=== PATIENT | male | born 1965 | race Caucasian/White ===

== ENCOUNTER 2021-02-20 17:26 | Inpatient (IN) | payer SELFPAY ==
[~2021-02-20] VITALS: Ht 170.2 cm; Wt 72.5 kg
[2021-02-20] MEDS ORDERED: MVI, ADULT NO.4 WITH VIT K 10 ML, FOLIC ACID INJ 1 MG, THIAMINE INJ 100 MG in IV RINGER... IV ONE (18:45)
[2021-02-20] MEDS ORDERED: busPIRone 5 MG TABLET. PO ONE (18:45)
[2021-02-20] MEDS ORDERED: LORazepam 1 MG TABLET PO ONE (18:45)
[2021-02-20 18:59] LABS: BASO % 1 % (0-3); EOS % 0 % (0-3); HEMATOCRIT 44.2 % (39.0-53.0); LYMPH # 1.3 x10^3/uL (1.0-4.8); LYMPH % 24 % (24-48); MEAN CORPUSCULAR HEMOGLOBIN 32 pg (25-35); MEAN CORPUSCULAR HGB CONC 34 g/dL (31-37); MEAN CORPUSCULAR VOLUME 93 fL (79-100); MONO # 0.4 x10^3/uL (0.0-1.1); MONO % 8 % (0-9); NEUT # 3.9 x10^3uL (1.8-7.7); NEUT % 68 % (31-73); PLATELET COUNT 234 x10^3/uL (140-400); RED BLOOD COUNT 4.77 x10^6/uL (4.30-5.70); RED CELL DISTRIBUTION WIDTH 15.5 % (11.5-14.5); WHITE BLOOD COUNT 5.7 x10^3/uL (4.0-11.0)
[2021-02-20 19:05] LABS: CALCIUM 8.2 mg/dL (8.5-10.1); GFR 77.6; POTASSIUM 3.8 mmol/L (3.5-5.1)
[2021-02-20 19:10] LABS: ALBUMIN/GLOBULIN RATIO 0.9 (1.0-1.7); TOTAL BILIRUBIN 0.4 mg/dL (0.2-1.0); TOTAL PROTEIN 8.5 g/dL (6.4-8.2)
[2021-02-20] MEDS ORDERED: IV NORMAL SALINE 1,000ML 1,000 ML IV ONE (19:30)
--- NOTE | 2021-02-20 19:44 | PHYS DOC ---
Past History Past Medical History: Alcoholism, Anxiety (MICHELET MCCLELLAN) Past Surgical History: No Surgical History (MICHELET MCCLELLAN) Alcohol Use: Heavy Drug Use: None (MICHELET MCCLELLAN) General Adult EDM: Chief Complaint: ALCOHOL INTOXICATION HPI: HPI: Patient is a 55 year old male who presents with alcohol intoxication. Patient's family friend is at bedside and assist in providing history. Patient reports that he typically drinks a half bottle of [place] and 6-7 beers per day. Today he reports he has taken in slightly less than that. He reports his anxiety is "out the roof." When asked what he is worried about or why he feels anxious he states, "I can answer that question." Patient's family friend at bedside states that the patient has been an alcoholic for several years, however his drinking got worse in the past 3 months since he had to handle the selling of his family home and auction of its contents. Patient now lives with his father in a mobile home. Patient's father called the family friend today asking him to take the patient to the ER to seek further rehabilitative treatment. Patient admits to having a drinking problem for the past 5 to 6 years and agrees that is gotten worse over the past 3 months. He reports that he wants to be admitted to a rehab facility. Patient reports medical compliance with lisinopril, Lexapro and BuSpar. Patient has not taken any of his medications today. Patient has no oth er complaints. (MICHELET MCCLELLAN) Review of Systems: Review of Systems: ROS negative except as mentioned in HPI. (MICHELET MCCLELLAN) Current Medications: Current Meds: Current Medications Medications (Trade) Dose Ordered Sig/[facility] Start Time Stop Time Status Last Admin Dose Admin Buspirone HCl (Buspar) 5 mg 1X ONCE 02/20/21 18:45 02/20/21 18:49 DC 02/20/21 18:45 5 MG Lorazepam (Ativan Inj) 2 mg PRN Q1HR PRN 02/20/21 19:30 Lorazepam (Ativan) 0.5 mg 1X ONCE 02/20/21 18:45 02/20/21 18:49 DC 02/20/21 18:45 0.5 MG Multivitamins/ Minerals 10 ml/ Folic Acid 1 mg/ Thiamine HCl 100 mg/Lactated Ringer's 1,011.3 ml @ 1,011.3 mls/hr 1X ONCE 02/20/21 18:45 02/20/21 19:44 02/20/21 18:45 1,011.3 MLS/HR Ondansetron HCl (Zofran) 4 mg PRN Q4HRS PRN 02/20/21 19:30 02/21/21 19:29 Sodium Chloride 1,000 ml @ 75 mls/hr 1X ONCE 02/20/21 19:30 02/21/21 08:49 (MICHELET MCCLELLAN) Allergies: Allergies: Allergies Coded Allergies Type Severity Reaction Last Updated Verified Penicillins Allergy Unknown 02/20/21 Yes (MICHELET MCCLELLAN) Physical Exam: PE: Constitutional: Well developed, well nourished, disheveled and tearful. HENT: Normocephalic, atraumatic, bilateral external ears normal, oropharynx moist, no oral exudates, nose normal. Eyes: PERRLA, EOMI, conjunctiva normal, no discharge. Neck: Normal range of motion, no tenderness, supple, no stridor. Cardiovascular: Heart rate regular rhythm, no murmur. Lungs & Thorax: Bilateral breath sounds clear to auscultation. Abdomen: Protuberant, bowel sounds normal, soft, no tenderness, no masses, no pulsatile masses. Skin: Warm, dry, no erythema, no rash. Some facial flushing appreciated. Back: No tenderness, no CVA tenderness. Extremities: No tenderness, no cyanosis, no clubbing, ROM intact, no edema. Neurologic: Alert and oriented x3, no focal deficits noted. Psychologic: Affect intoxicated, fair judgment, mood "my anxiety is out the roof." (MICHELET MCCLELLAN) Current Patient Data: Labs: Laboratory Tests Test 02/20/21 18:38 02/20/21 18:55 White Blood Count 5.7 x10^3/uL (4.0-11.0) Red Blood Count 4.77 x10^6/uL (4.30-5.70) Hemoglobin 15.0 g/dL (13.0-17.5) Hematocrit 44.2 % (39.0-53.0) Mean Corpuscular Volume 93 fL (79-100) Mean Corpuscular Hemoglobin 32 pg (25-35) Mean Corpuscular Hemoglobin Concent 34 g/dL (31-37) Red Cell Distribution Width 15.5 % (11.5-14.5) H Platelet Count 234 x10^3/uL (140-400) Neutrophils (%) (Auto) 68 % (31-73) Lymphocytes (%) (Auto) 24 % (24-48) Monocytes (%) (Auto) 8 % (0-9) Eosinophils (%) (Auto) 0 % (0-3) Basophils (%) (Auto) 1 % (0-3) Neutrophils # (Auto) 3.9 x10^3uL (1.8-7.7) Lymphocytes # (Auto) 1.3 x10^3/uL (1.0-4.8) Monocytes # (Auto) 0.4 x10^3/uL (0.0-1.1) Eosinophils # (Auto) 0.0 x10^3/uL (0.0-0.7) Basophils # (Auto) 0.0 x10^3/uL (0.0-0.2) Sodium Level 129 mmol/L (136-145) L Potassium Level 3.8 mmol/L (3.5-5.1) Chloride Level 92 mmol/L (98-107) L Carbon Dioxide Level 23 mmol/L (21-32) Anion Gap 14 (6-14) Blood Urea Nitrogen 6 mg/dL (8-26) L Creatinine 1.0 mg/dL (0.7-1.3) Estimated GFR (Cockcroft-Gault) 77.6 BUN/Creatinine Ratio 6 (6-20) Glucose Level 104 mg/dL (70-99) H Calcium Level 8.2 mg/dL (8.5-10.1) L Total Bilirubin 0.4 mg/dL (0.2-1.0) Aspartate Amino Transferase (AST) 69 U/L (15-37) H Alanine Aminotransferase (ALT) 45 U/L (16-63) Alkaline Phosphatase 100 U/L (46-116) Total Protein 8.5 g/dL (6.4-8.2) H Albumin 4.0 g/dL (3.4-5.0) Albumin/Globulin Ratio 0.9 (1.0-1.7) L Lipase 155 U/L (73-393) Ethyl Alcohol Level 392 mg/dL (0-10) H SARS-CoV-2 Antigen (Rapid) Negative (NEGATIVE) Vital Signs: Vital Signs Date Time Temp Pulse Resp B/P (MAP) Pulse Ox O2 Delivery O2 Flow Rate FiO2 02/20/21 17:45 98.5 116 16 134/104 (114) 96 Room Air (MICHELET MCCLELLAN) Heart Score: C/O Chest Pain: No (MICHELET MCCLELLAN) Course & Med Decision Making: Course & Med Decision Making Pertinent Labs and Imaging studies reviewed. (See chart for details) Patient will be admitted to hospitalist service for detoxification and monitoring. Will be evaluated for inpatient rehabilitation when he is sober. (MICHELET MCCLELLAN) Dragon Disclaimer: Dragon Disclaimer: This electronic medical record was generated, in whole or in part, using a voice recognition dictation system. (MICHELET MCCLELLAN) Departure Departure: Impression: Primary Impression: Acute alcohol intoxication Qualified Codes: F10.920 - Alcohol use, unspecified with intoxication, uncomplicated Disposition: ADMITTED INPATIENT Admitting Physician: Erik Barraza (MICHELET MCCLELLAN) Condition: GUARDED Referrals: PCP,JULEE (PCP) Attending Signature Attending Signature I have reviewed the PA/PRESS TOOL MAKER's note and plan of care. I was available for consultation as needed during the patient's visit in the emergency department. I agree with the clinical impression, plan, and disposition. (LOBO CHASE DO) MICHELET MCCLELLAN Feb 20, 2021 19:44 LOBO CHASE DO Feb 20, 2021 22:14
[2021-02-20 20:28] LABS: BARBITURATES NEG (NEG); BENZODIAZEPINES NEG (NEG); CANNABINOIDS NEG (NEG); COCAINE NEG (NEG); METHADONE NEG (NEG); OPIATES NEG (NEG); PHENCYCLIDINE NEG (NEG)
[2021-02-20 20:30] LABS: AMPHETAMINE/METHAMPHETAMINE NEG (NEG)
[2021-02-20 20:41] LABS: BACTERIA,URINE FEW /HPF (0-FEW); BILIRUBIN,URINE NEG (NEG); CLARITY,URINE CLEAR; COLOR,URINE YELLOW; GLUCOSE,URINE NEG (NEG); NITRITE,URINE NEG (NEG); SQUAMOUS EPITHELIAL CELL,UR FEW /LPF; UROBILINOGEN,URINE 0.2 mg/dL (0.2 mg/dL)
[2021-02-20] MEDS: NICOTINE 21MG PATCH. TD PRN (21:06)
[2021-02-20] MEDS: ONDANSETRON PF 4 MG/2 ML VIAL. IVP PRN (21:32)
[2021-02-20 22:09] VITALS: BP 146/93
[2021-02-20 23:00] VITALS: BP 109/72
[2021-02-21] MEDS: ONDANSETRON PF 4 MG/2 ML VIAL. IVP PRN ×3 (07:51→18:02)
--- NOTE | 2021-02-21 09:23 | HP ---
DATE OF SERVICE: 02/21/2021 ADMIT DATE: 02/20/2021 ATTENDING PHYSICIAN: Erik Barraza MD CHIEF COMPLAINT: Alcohol withdrawal. HISTORY OF PRESENT ILLNESS: The patient is a 55-year-old gentleman who drinks to excess. He drinks [place] and several beers afterwards. Blood alcohol level was 398 yesterday. He is very despondent. He called, family brought him in. He is wanting treatment for impending delirium tremens. When I saw him, he was very agitated, shaking. He has not had DTs or seizures in the past, but he has impending delirium tremens at this time. PAST MEDICAL HISTORY: Significant for depression and chronic alcoholism. He drinks regularly. He has not had a DUI. He states that he has not had seizures before. CURRENT MEDICATIONS: None. SOCIAL HISTORY: Alcohol use as noted. Blood alcohol level was slightly under 400 mg/dL. FAMILY HISTORY: He lives with his dad in a trailer home. They lost their home. He is unemployed. REVIEW OF SYSTEMS: All other systems reviewed and turned out to be negative. PHYSICAL EXAMINATION: GENERAL: When I saw him, this is a tremulous gentleman. VITAL SIGNS: Initial vital signs showed a blood pressure 109/72, pulse is 99, regular. He was afebrile, oxygen saturation 93% on room air. HEENT: Head is without trauma. Pupils are reactive. Sclerae nonicteric. The oropharynx is clear. NECK: Supple, no bruits. LUNGS: Shallow respirations. CARDIOVASCULAR: Showed regular heart tones. No gallops. ABDOMEN: Soft. EXTREMITIES: Without edema. NEUROLOGIC: Very tremulous and agitated. SKIN: Warm and dry. PERTINENT LABORATORY STUDIES: Hemoglobin is 15.0 g/dL, white count was 5700. Electrolytes showed a sodium of 129 mEq, potassium was 3.8 mEq, creatinine 1.0 mg/dL. Nonfasting blood sugar 104, total bilirubin 0.4. Transaminases, slight elevation of AST. Lipase is normal. Serology negative for coronavirus. ASSESSMENT: 1. A 55-year-old gentleman with chronic alcoholism. 2. Alcohol withdrawal with impending delirium tremens. 3. Underlying depression and anxiety. PLAN: 1. Admit to the inpatient unit. 2. CIWA protocol. 3. Diet as tolerated. ANNAMARIE/MANDO DR: ANNAMARIE/elodia TID: [id number]
[2021-02-21] MEDS ORDERED: LISI10TA16 PO (10:13)
[2021-02-21] MEDS ORDERED: BUSP15TA PO (10:13)
[2021-02-21] MEDS ORDERED: HYDR25TA PO (10:13)
[2021-02-21] MEDS ORDERED: OMEP40CA7 PO (10:13)
[2021-02-21] MEDS ORDERED: GABA-587 PO (10:13)
[2021-02-21] MEDS ORDERED: TRAZ150T49 PO (10:14)
[2021-02-21] MEDS: MVI, ADULT NO.4 WITH VIT K 10 ML, THIAMINE INJ 100 MG, FOLIC ACID INJ 1 MG in IV NORMAL... IV SCH (10:41)
[2021-02-21 11:00] VITALS: BP 179/97
[2021-02-21] MEDS: busPIRone 15 MG TABLET. PO PRN (12:01)
[2021-02-21] MEDS: GABAPENTIN 400 MG CAPSULE. PO SCH ×3 (12:01→19:53)
[2021-02-21] MEDS: LISINOPRIL 10 MG TABLET PO SCH (12:01)
[2021-02-21] MEDS: NICOTINE 21MG PATCH. TD PRN (13:50)
[2021-02-21 15:04] VITALS: BP 156/92
[2021-02-21 19:00] VITALS: BP 165/88
[2021-02-21] MEDS ORDERED: traZODone 150 MG TABLET. PO SCH (21:00)
[2021-02-22 05:06] VITALS: BP 139/81
[2021-02-22] MEDS ORDERED: PANTOPRAZOLE 40 MG TABLET. PO SCH (07:30)
[2021-02-22 08:43] VITALS: BP 139/81
[2021-02-22] MEDS: MVI, ADULT NO.4 WITH VIT K 10 ML, THIAMINE INJ 100 MG, FOLIC ACID INJ 1 MG in IV NORMAL... IV SCH (08:43)
[2021-02-22] MEDS: busPIRone 15 MG TABLET. PO PRN (08:43)
[2021-02-22] MEDS: LISINOPRIL 10 MG TABLET PO SCH (08:43)
[2021-02-22] MEDS: GABAPENTIN 400 MG CAPSULE. PO SCH (08:43)
[2021-02-22] MEDS: NICOTINE 21MG PATCH. TD PRN (08:44)
--- NOTE | 2021-02-22 10:03 | DS ---
DATE OF DISCHARGE: 02/22/2021 ATTENDING PHYSICIAN: Dr. Barraza. FINAL DISCHARGE DIAGNOSES: 1. Acute alcohol intoxication. 2. Chronic alcoholism. 3. Alcohol withdrawal with impending delirium tremens. 4. Underlying depression and anxiety. 5. Chronic obstructive pulmonary disease due to tobacco use. HISTORY AND PHYSICAL: The patient is a 55-year-old gentleman who was drinking alcohol to excess. He was admitted with a blood alcohol level of 398 mg/dL in the ED. He has impending delirium tremens. He is admitted for further treatment. He drinks bourbon along with beer. PHYSICAL EXAMINATION: Please see my dictated note. PERTINENT LABORATORY AND X-RAY STUDIES: Admission hemoglobin was 15.0 g/dL with a white count of 5700. Blood alcohol level was elevated. Sodium was 129 mEq, potassium 3.8, creatinine 1.0 mg percent. Nonfasting blood sugar 104. Surprisingly transaminases were not elevated. Bilirubin was normal. Serology negative for coronavirus. Urine screen was positive for ethyl alcohol. COURSE IN THE HOSPITAL: The patient was admitted. He was started on CIWA protocol. He did have significant tremulousness on the first day, Ativan helped by the morning, the third hospital day, he was sober, alert and his tremulous had resolved. No seizures identified. At this time, he is stable for discharge from a medical standpoint. I explained to him there are no treatment plans here at this hospital. We have a [facility] that will not do alcohol withdrawal. I gave him the names of several places, but availability is an issue. We also initiated the process for application for Medicaid. Whether he will be successful remains to be seen. Strong encouragement to avoid further alcohol and tobacco use, whether or not he will quit drinking and smoking remains to be seen. He was discharged then with a script for Ativan 1 mg p.o. every 8 hours #60 with no refills. Other home meds are unchanged, they include the following: He will continue his lisinopril, Neurontin and omeprazole dose is unchanged. The patient was then discharged from our hospital in stable condition with explicit drug and followup care. ANNAMARIE/DONNIE DR: ANNAMARIE/elodia TID: [id number]
== END 2021-02-22 09:40 | disposition home or self-care (01) | DRG 897 ==
LOC: ER 17:26 → 1 SOUTH 19:24
PROVIDERS: ADMIT Hospitalist; ATTEND Hospitalist
DX: F10.220 Alcohol dependence with intoxication, uncomplicated (principal); F41.9 Anxiety disorder, unspecified; Y90.8 Blood alcohol level of 240 mg/100 ml or more; F10.239 Alcohol dependence with withdrawal, unspecified; F32.A Depression, unspecified; J44.9 Chronic obstructive pulmonary disease, unspecified
CPT/HCPCS: 80053; 80307; 81001; 83690; 85025; 87426; 96365; 96366; 96375; 99406; G0480; J2060; J2405; J7120; U0003; 99285-25; J7030

== ENCOUNTER 2021-03-03 20:23 | Emergency (ER) | payer SELFPAY ==
[~2021-03-03] VITALS: Ht 180.3 cm; Wt 68.2 kg
[~2021-03-03 20:23] MED LIST: BUSP15TA PO; GABA-587 PO; HYDR25TA PO; LISI10TA16 PO; OMEP40CA7 PO; TRAZ150T49 PO
--- NOTE | 2021-03-03 20:28 | PHYS DOC ---
Past History Past Medical History: Alcoholism, Anxiety Past Surgical History: No Surgical History Alcohol Use: Heavy Drug Use: None General Adult EDM: Chief Complaint: SYNCOPE HPI: HPI: ".. I do not know what the fuck is going on,,, I have passed out 2 times today... And I am not that drunk... I think he only had 4 beers...".. "I zoning out a little while and woke up on the floor.... I do not think I hurt anything.." Patient is a 55 year old male who presents with above hx and complaints of syncope x2. Patient does not remember any changes in his heart rhythm prior to passing out. Patient denies any history of seizures in the past. No recent history of fever or chills. Has completed 1 vaccination of COVID Moderna. Patient denies any change in baseline meds. Patient relates he is not normally hypertensive as he is currently. Patient denies any. His history of TIAs or CVAs. Patient does smoke tobacco. Patient denies any illicit drug use. Patient in the past have consumed much more alcohol today than he did today. Patient normally follows with Dr. Hue Fraser for his care. Has not had flu vaccination yet this season. No history of immunosuppression. Patient denies any injury with his syncopal episodes. Patient states he feels dizzy just before collapsing. Patient does admit that he may have not consumed enough wate r today or right kind of fluids. Review of Systems: Review of Systems: Constitutional: Denies fever or chills Eyes: Denies change in visual acuity HENT: Denies nasal congestion or sore throat Respiratory: Denies cough or shortness of breath Cardiovascular: Denies chest pain or edema. Complaints of syncope GI: Denies abdominal pain, nausea, vomiting, bloody stools or diarrhea : Denies dysuria Musculoskeletal: Denies back pain or joint pain Integument: Denies rash Neurologic: Denies headache, focal weakness or sensory changes Endocrine: Denies polyuria or polydipsia Lymphatic: Denies swollen glands Psychiatric: Denies depression or anxiety Family History: Family History: Noncontributory to presentation Current Medications: Current Meds: See nursing for home meds Allergies: Allergies: Allergies Coded Allergies Type Severity Reaction Last Updated Verified Penicillins Allergy Unknown 02/20/21 Yes Physical Exam: PE: Constitutional: no acute distress, mildly intoxicated in appearance. Strong sm ell of alcoholic beverage HENT: Normocephalic, atraumatic, bilateral external ears normal, oropharynx moist, no oral exudates, nose normal. [] Eyes: PERRLA, EOMI, conjunctiva normal, no discharge. [] Neck: Normal range of motion, no tenderness, supple, no stridor. [] Cardiovascular: Tachycardia heart rate regular rhythm, no murmur []_is sinus tachycardia. Lungs & Thorax: Bilateral breath sounds to apex with scattered wheezes on auscultation [] Abdomen: Bowel sounds normal, soft, no tenderness, no masses, no pulsatile masses. [] Skin: Warm, dry, no erythema, no rash. [] Back: No tenderness, no CVA tenderness. [] Extremities: No tenderness, no cyanosis, no clubbing, ROM intact, no edema. Few bony point ecchymotic areas. Neurologic: Alert and oriented X 3, moves all extremities on request, has distal sensory, no focal deficits noted. [] [place] Coma Scale 15. DTRs +2 patella and brachial. Coal Picker equal. No drift. [id number]. Psychologic: Affect anxious, judgement normal, mood normal. [] EKG: EKG: My interpretation EKG shows a sinus rhythm at 77 bpm. Slightly prolonged QT interval at 436 ms. QTC is 495 ms. No signs of acute STEMI of contralateral changes. Time of EKG is 2028 [] My interpretation of EKG #2 shows a sinus rhythm at 70 bpm. Slightly prolonged QT interval at 462 ms. QT C is 502 ms. No findings of acute STEMI of contralateral changes. Overall morphology essentially unchanged from prior EKG. Time of this EKG is 2306 hrs. Radiology/Procedures: Radiology/Procedures: [address] [address] IMAGING REPORT Signed PATIENT: JOHANN RO ACCOUNT: [id number] : 1965 LOCATION: ER AGE: 55 SEX: M EXAM STATUS: REG ER ORD. PHYSICIAN: ARMAAN PACE MD REASON: syncope PROCEDURE: PORTABLE CHEST 1V EXAMINATION: Chest radiograph. VIEWS: Single view COMPARISON: None INDICATION:55 years, Male, syncope. FINDINGS: Normal cardiomediastinal silhouette. No focal consolidation. No pleural effusion or pneumothorax. No acute osseous process. Chronic appearing left ninth rib fracture IMPRESSION: No acute cardiopulmonary process. Electronically signed by: Adiel Allen MD (03/03/2021 10:41 PM) [facility] DICTATED AND SIGNED BY: ADIEL ALLEN MD DATE: 03/03/212239 CC: ARMAAN PACE MD; HUE FRASER MD ~MTH0 0 [][address] [address] IMAGING REPORT Signed PATIENT: JOHANN RO ACCOUNT: [id number] : 1965 LOCATION: ER AGE: 55 SEX: M EXAM STATUS: REG ER ORD. PHYSICIAN: ARMAAN PACE MD REASON: fall, syncope PROCEDURE: CT HEAD WO CONTRAST EXAMINATION: CT head without IV contrast. INDICATION:55 years, Male, fall, syncope. COMPARISON: None TECHNIQUE: Spiral acquisition of contiguous images from the skull base to the vertex were obtained. Sagittal and coronal 2D reformatted series were provided by the technologist. Soft tissue and bone window algorithms were reviewed. Exposure: One or more of the following individualized dose reduction techniques were utilized for this examination: 1. Automated exposure control 2. Adjustment of the mA and/or kV according to patient size 3. Use of iterative reconstruction technique. FINDINGS: Neither mass, midline shift, intracranial hemorrhage, acute/subacute ischemic changes, nor extraaxial fluid collections are seen. The brain parenchyma is normal in appearance.The ventricles are normal in size. Small retention cyst in the left maxillary sinus. The remaining Paranasal sinuses, mastoid air cells, and middle ears are clear.The orbital contents appear within normal limits. IMPRESSION: No evidence of acute intracranial abnormality. Electronically signed by: Adiel Allen MD (03/03/2021 10:40 PM) [facility] DICTATED AND SIGNED BY: ADIEL ALLEN MD DATE: 03/03/212237 CC: ARMAAN PACE MD; HUE FRASER MD ~MTH0 0 Heart Score: C/O Chest Pain: No HEART Score for Chest Pain: HEART Score for Chest Pain Response (Comments) Value History Slighlty/Non-Suspicious 0 ECG Nonspecific Repolarizatio 1 Age >45 - < 65 1 Risk Factors 1 or 2 Risk Factors 1 Troponin < Normal Limit 0 Total 3 Risk Factors: Risk Factors: DM, Current or recent (<one month) smoker, HTN, HLP, family history of CAD, obesity. Risk Scores: Score 0 - 3: 2.5% MACE over next 6 weeks - Discharge Home Score 4 - 6: 20.3% MACE over next 6 weeks - Admit for Clinical Observation Score 7 - 10: 72.7% MACE over next 6 weeks - Early Invasive Strategies Course & Med Decision Making: Course & Med Decision Making Pertinent Labs and Imaging studies reviewed. (See chart for details) " I feel a lot better.. I want to go home.. " 0030 hrs. Patient declines admission at this time and seeing a parking enforcement specialist in the morning. Patient exhibits UCAR capacity. Seems to understand risk of discharge. Encourage pt. to reduce ETOIH intake. Pt. take a daily baby aspirin. Follow up with primary . Return if any concerns. Impression: 1. Syncope x 2 2. Accelerated hypertension 3. Alcoholism = tonight 167 4. Mild Elevation D-dimer 0.84 5. Dehydration [] Dragon Disclaimer: Andres Disclaimer: This electronic medical record was generated, in whole or in part, using a voice recognition dictation system. Departure Departure: Referrals: HUE FRASER MD (PCP) Andres Disclaimer This chart was dictated in whole or in part using Voice Recognition software in a busy, high-work load, and often noisy Emergency Department environment. It may contain unintended and wholly unrecognized errors or omissions. ARMAAN PACE MD Mar 03, 2021 20:28
[2021-03-03] MEDS ORDERED: MVI, ADULT NO.4 WITH VIT K 10 ML, FOLIC ACID INJ 1 MG, THIAMINE INJ 100 MG in IV RINGER... IV ONE (20:45)
[2021-03-03] MEDS ORDERED: IV RINGERS SOLUTION,LACTATED 1,000 ML IV SCH (20:45)
[2021-03-03] MEDS ORDERED: THIAMINE 200 MG/2 ML VIAL. IV ONE (20:50)
[2021-03-03] MEDS ORDERED: MVI, ADULT NO.4 WITH VIT K 10 ML VIAL IV ONE (20:51)
[2021-03-03] MEDS ORDERED: FOLIC ACID 1 MG TABLET ONE (20:52)
[2021-03-03 20:59] LABS: BASO # 0.1 x10^3/uL (0.0-0.2); BASO % 1 % (0-3); EOS # 0.1 x10^3/uL (0.0-0.7); EOS % 2 % (0-3); HEMATOCRIT 38.7 % (39.0-53.0); LYMPH # 1.4 x10^3/uL (1.0-4.8); LYMPH % 24 % (24-48); MEAN CORPUSCULAR HEMOGLOBIN 32 pg (25-35); MEAN CORPUSCULAR HGB CONC 34 g/dL (31-37); MEAN CORPUSCULAR VOLUME 95 fL (79-100); MONO # 0.5 x10^3/uL (0.0-1.1); MONO % 9 % (0-9); NEUT # 3.7 x10^3uL (1.8-7.7); NEUT % 64 % (31-73); PLATELET COUNT 362 x10^3/uL (140-400); RED BLOOD COUNT 4.06 x10^6/uL (4.30-5.70); RED CELL DISTRIBUTION WIDTH 15.9 % (11.5-14.5); WHITE BLOOD COUNT 5.8 x10^3/uL (4.0-11.0)
[2021-03-03] MEDS ORDERED: FOLIC ACID 1 MG TABLET PO ONE (21:00)
[2021-03-03 21:10] LABS: CALCIUM 8.2 mg/dL (8.5-10.1); GFR 77.6; POTASSIUM 3.9 mmol/L (3.5-5.1)
[2021-03-03 21:23] LABS: ALBUMIN 3.3 g/dL (3.4-5.0); DIRECT BILIRUBIN 0.1 mg/dL (0.0-0.2); MAGNESIUM 2.2 mg/dL (1.8-2.4); TOTAL BILIRUBIN 0.3 mg/dL (0.2-1.0); TOTAL PROTEIN 6.8 g/dL (6.4-8.2)
[2021-03-03 21:49] LABS: AMPHETAMINE/METHAMPHETAMINE NEG (NEG); BARBITURATES NEG (NEG); BENZODIAZEPINES NEG (NEG); CANNABINOIDS NEG (NEG); COCAINE NEG (NEG); METHADONE NEG (NEG); OPIATES NEG (NEG); PHENCYCLIDINE NEG (NEG)
[2021-03-03 21:53] LABS: BACTERIA,URINE FEW /HPF (0-FEW); BILIRUBIN,URINE NEG (NEG); CLARITY,URINE CLEAR; COLOR,URINE YELLOW; GLUCOSE,URINE NEG (NEG); NITRITE,URINE NEG (NEG); UROBILINOGEN,URINE 0.2 mg/dL (0.2 mg/dL); WBC,URINE 0 /HPF (0-4)
[2021-03-03] MEDS ORDERED: cloNIDine HCL 0.1 MG TABLET PO ONE (22:00)
[2021-03-03] MEDS ORDERED: cloNIDine TTS-2 1 PATCH PATCH TD ONE (22:00)
[2021-03-03 22:24] LABS: INFLUENZA A PATIENT NEGATIVE (NEGATIVE); INFLUENZA B PATIENT NEGATIVE (NEGATIVE)
--- NOTE | 2021-03-03 22:41 | EKG ---
[address] [address] Test Date: 2021-03-03 Test Time: 20:29:38 Pat Name: JOHANN RO Department: Room: Gender: M Acoustic Warfare Analyst: jim user : 1965 Requested By: ARMAAN PACE Order Number: [id number] Reading MD: Measurements Intervals [place] Rate: 77 P: 64 CA: 136 QRS: 82 QRSD: 100 T: 83 QT: 436 QTc: 495 Interpretive Statements SINUS RHYTHM PROLONGED QT NO SPECIFIC ECG ABNORMALITIES RI6.02 No previous ECG available for comparison
--- NOTE | 2021-03-03 22:43 | RAD ---
EXAMINATION: CT head without IV contrast. INDICATION:55 years, Male, fall, syncope. COMPARISON: None TECHNIQUE: Spiral acquisition of contiguous images from the skull base to the vertex were obtained. S agittal and coronal 2D reformatted series were provided by the technologist. Soft tissue and bone win priya algorithms were reviewed. Exposure: One or more of the following individualized dose reduction techniques were utilized for thi s examination: 1. Automated exposure control 2. Adjustment of the mA and/or kV according to patient size 3. Use of iterative reconstruction technique. FINDINGS: Neither mass, midline shift, intracranial hemorrhage, acute/subacute ischemic changes, nor extraaxial fluid collections are seen. The brain parenchyma is normal in appearance.The ventricles are normal i n size. Small retention cyst in the left maxillary sinus. The remaining Paranasal sinuses, mastoid air cells, and middle ears are clear.The orbital contents appear within normal limits. IMPRESSION: No evidence of acute intracranial abnormality. Electronically signed by: Rikki Allen MD (03/03/2021 10:40 PM) [facility]
--- NOTE | 2021-03-03 22:43 | RAD ---
EXAMINATION: Chest radiograph. VIEWS: Single view COMPARISON: None INDICATION:55 years, Male, syncope. FINDINGS: Normal cardiomediastinal silhouette. No focal consolidation. No pleural effusion or pneumothorax. No acute osseous process. Chronic appearing left ninth rib fracture IMPRESSION: No acute cardiopulmonary process. Electronically signed by: Rikki Allen MD (03/03/2021 10:41 PM) [facility]
--- NOTE | 2021-03-04 00:11 | EKG ---
[address] [address] Test Date: 2021-03-03 Test Time: 23:06:47 Pat Name: JOHANN RO Department: Room: Gender: M Computer Forensic Examiner: jim user : 1965 Requested By: ARMAAN PACE Order Number: [id number] Reading MD: Measurements Intervals [place] Rate: 70 P: 56 DC: 140 QRS: 74 QRSD: 98 T: 78 QT: 462 QTc: 502 Interpretive Statements SINUS RHYTHM PROLONGED QT NO SPECIFIC ECG ABNORMALITIES RI6.02 No previous ECG available for comparison
[2021-03-04 00:40] VITALS: BP 113/73
[2021-03-04] MEDS ORDERED: ASPIRIN CHEWABLE 81 MG TABLET. PO ONE (01:00)
== END 2021-03-04 00:47 | disposition home or self-care (01) ==
LOC: ER 20:23
DX: R55 Syncope and collapse (principal); I10 Essential (primary) hypertension; R79.1 Abnormal coagulation profile; E86.0 Dehydration; F10.20 Alcohol dependence, uncomplicated; F41.9 Anxiety disorder, unspecified; Z20.822 Contact with and (suspected) exposure to COVID-19; Z88.0 Allergy status to penicillin; Y90.6 Blood alcohol level of 120-199 mg/100 ml
CPT/HCPCS: 36415; 70450; 71045; 80048; 80076; 80307; 81001; 82550; 83690; 83735; 83880; 84443; 84484; 85025; 85379; 85610; 85730; 87426; 87804; 93005; 96365; 99285; G0480; J7120

== ENCOUNTER → 2021-07-24 | Outpatient (CLI) | payer MEDICAID ==
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
== END ==
LOC: RAD 15:26
PROVIDERS: ATTEND Anesthesiology Pain Medicine
DX: M47.812 Spondylosis without myelopathy or radiculopathy, cervical region (principal); M48.02 Spinal stenosis, cervical region
CPT/HCPCS: 72050